=== PATIENT | male | born 1970 | race Caucasian/White ===

== ENCOUNTER → 2018-03-19 10:10 | Outpatient (CLI) | payer SELFPAY, OTHER ==
--- NOTE | 2018-03-19 10:31 | MRI_ITS ---
STUDY: MRI CERVICAL SPINE WITHOUT CONTRAST REASON FOR EXAM: Male, 48 years old. Throbbing. Left shoulder/arm pain x9 weeks. TECHNIQUE: Standardized fat and water weighted pulse sequences were obtained in the sagittal and axial planes. COMPARISON: None FINDINGS: Normal foramen magnum and brainstem-cervical cord junction. Normal craniovertebral junction. Normal anterior atlantoaxial articulation. Normal odontoid process. Straightening of the C-spine curve. Normal vertebral bodies and posterior osseous elements. C2-3: Normal endplates. Normal disc height, signal and morphology. Normal central canal and intervertebral neural foramina. C3-4: Normal endplates. Normal disc height, signal and morphology. Normal central canal and intervertebral neural foramina. C4-5: Normal endplates. Normal disc height, signal and morphology. Normal central canal and intervertebral neural foramina. C5-6: Normal endplates. Normal disc height and morphology. Normal central canal. Mild stenosis of the right intervertebral neural foramen. Normal left intervertebral neural foramen. C6-7: Normal endplates. Mild disc space height narrowing. Prominent left ventral extradural defect is suspicious for a small disc extrusion. This is causing severe stenosis of the left exit foramen and probable displacement of the left C7 nerve root sleeve. Normal right intervertebral neural foramen. C7-T1: Normal endplates. Normal disc height, signal and morphology. Normal central canal and intervertebral neural foramina. T1-T2, T2-T3, T3-T4 and T4-T5: (Sagittal only). Normal endplates. Normal disc height and morphology. Normal central canal and bilateral intervertebral neural foramina. Normal cervical cord. Normal visualized soft tissue structures. MRI/Spine Cervical (Routine) IMPRESSION: 1. Suspicious small left C6-C7 posterior disc extrusion causing severe stenosis of the left exit foramen and displacement of the left C7 nerve root sleeve. 2. Mild stenosis of the right C5-C6 intervertebral neural foramen due to small ossific spur arising from the right uncovertebral joint. Electronically Signed: Maximus Cloud MD at 14:21 EDT , Service support ,
== END ==
PROVIDERS: Family Provider Family Medicine; PCP Family Medicine
DX: M47.812 Spondylosis without myelopathy or radiculopathy, cervical region (principal); M99.01 Segmental and somatic dysfunction of cervical region
CPT/HCPCS: 72141